=== PATIENT | female | born 1940 | race Caucasian/White ===

== ENCOUNTER 2021-10-20 18:12 | Inpatient (IN) ==
[2021-10-21] MEDS ORDERED: *HR* OxyCODONE Immed Rel 5 MG TABLET PO PRN ×4 (01:54→14:35)
[2021-10-21] MEDS ORDERED: Ondansetron 4 MG/2 ML VIAL IVP PRN ×2 (01:54→14:35)
[2021-10-21] MEDS ORDERED: Naloxone 0.4 MG/ML INJ IVP PRN ×2 (01:54→14:35)
[2021-10-21] MEDS ORDERED: Acetaminophen 325 MG TABLET PO PRN ×2 (01:54→14:35)
[2021-10-21] MEDS ORDERED: *HR* Promethazine 25 MG/ML VIAL IM PRN ×2 (01:54→14:35)
[2021-10-21] MEDS ORDERED: *HR* HYDROcodone/Acet 5/325 mg TABLET PO PRN ×2 (01:54→14:35)
[2021-10-21] MEDS ORDERED: Melatonin 3 MG TABLET PO PRN (01:54)
[2021-10-21] MEDS ORDERED: Perflutren Lipid Microsphere 1.3 ML in 0.9 % Sodium Chloride 8.7 ML IVP PRN ×2 (03:16→14:35)
[2021-10-21] MEDS ORDERED: *HR* Heparin 5,000 UNIT/ML VIAL SQ SCH (06:00)
[2021-10-21 06:59] LABS: Immature Granulocytes % 0.5 % (0-4); Platelet Count 135 K/mcL (140-400); Red Cell Distribution Width 13.2 % (11.5-14.5)
[2021-10-21 07:01] LABS: Basophils % 0.3 %; Eosinophils % 0.5 %; Hematocrit 43.7 % (35.3-44.9); Immature Platelets 9.5 % (1.1-6.1); Lymphocytes # 0.7 K/mcL (0.6-4.6); Lymphocytes % 9.1 %; Mean Corpuscular HGB Conc 34.3 g/dL (31.6-35.5); Mean Corpuscular Hemoglobin 31.6 pg (28.0-33.3); Mean Platelet Volume 11.2 fL (9.4-12.4); Monocytes # 0.5 K/mcL (0.0-1.3); Monocytes % 6.6 %; Neutrophils # 6.6 K/mcL (1.6-8.9); Red Blood Count 4.75 M/mcL (3.82-4.97)
[2021-10-21 07:08] LABS: INR 1.1; Prothrombin Time 12.2 Seconds (9.4-12.1)
[2021-10-21 07:19] LABS: Albumin 3.8 g/dL (3.5-5.7); Albumin/Globulin Ratio 1.7 (1.1-2.2); BUN/Creatinine Ratio 28 (6-26); Bilirubin,Direct 0.5 mg/dL (0.0-0.2); Bilirubin,Indirect 1.1 mg/dL (0.0-1.0); Bilirubin,Total 1.6 mg/dL (0.3-1.0); Blood Urea Nitrogen 20 mg/dL (8-23); Calcium 8.9 mg/dL (8.6-10.3); Carbon Dioxide 26 mEq/L (23-29); Chloride 101 mEq/L (98-107); Globulin 2.3 g/dL (2.4-3.5); Glucose 117 mg/dL (70-105); Magnesium 1.8 mg/dL (1.6-2.6); Osmolality,Calculated 282 (280-300); Potassium 3.8 mEq/L (3.5-5.1); Sodium 134 mEq/L (136-145); Total Protein 6.1 g/dL (6.4-8.9); eGFR For African Americans > 60 (> 60); eGFR For Non-African Americans > 60 (> 60)
[2021-10-21] MEDS ORDERED: Ketorolac 30 MG/ML VIAL IVP PRN (07:57)
[2021-10-21] MEDS ORDERED: Acetaminophen IV 1,000 MG/100 ML BAG IVPB ONE ×2 (07:57→14:35)
[2021-10-21] MEDS ORDERED: *HR* Labetalol 20 MG/4 ML SYRINGE IVP PRN ×2 (07:57→14:35)
[2021-10-21] MEDS ORDERED: *HR* HYDROmorphone 2 MG TABLET PO PRN ×2 (07:57→14:35)
[2021-10-21] MEDS ORDERED: *HR* HYDROmorphone (PF) 1 MG/ML SYRINGE IVP PRN ×2 (07:57→14:35)
[2021-10-21] MEDS ORDERED: Famotidine 20 MG/2 ML VIAL IVP ONE (07:57)
[2021-10-21] MEDS ORDERED: Ringers Solution, Lactated 1,000 ML IVC SCH ×2 (09:45→14:35)
[2021-10-21] MEDS ORDERED: *HR* FentaNYL (PF) 100 MCG/2 ML VIAL ONE (10:01)
[2021-10-21] MEDS ORDERED: *HR* Propofol 200 MG/20 ML VIAL IVP ONE (10:02)
[2021-10-21] MEDS ORDERED: Lidocaine -MPF 2% 5 ML VIAL ONE (10:04)
[2021-10-21] MEDS ORDERED: *HR* Succinylcholine 200 MG/10 ML VIAL IVP ONE (10:04)
[2021-10-21] MEDS ORDERED: Lidocaine HCL 4 ML Topical Solution (Laryng-O-Jet Kit Sterile Pak) TP ONE (10:04)
[2021-10-21] MEDS ORDERED: Tranexamic Acid 1,000 MG/10 ML VIAL ONE (10:09)
[2021-10-21] MEDS ORDERED: Ethanol\\Acetic Acid\\Na Ace\\Ben 1,000 ML IRRIG.SOLN IR ONE (10:13)
[2021-10-21] MEDS ORDERED: Vancomycin 1,000 MG VIAL ONE (11:41)
[2021-10-21] MEDS: CeFAZolin 2 GM/120 ML BAG IVPB SCH (18:04)
[2021-10-21] MEDS: Melatonin 3 MG TABLET PO PRN (21:37)
[2021-10-22] MEDS: CeFAZolin 2 GM/120 ML BAG IVPB SCH (01:44)
[2021-10-22 06:05] LABS: Basophils % 0.3 %; Eosinophils % 0.2 %; Hematocrit 36.6 % (35.3-44.9); Immature Granulocytes % 0.4 % (0-4); Lymphocytes # 1.4 K/mcL (0.6-4.6); Lymphocytes % 13.1 %; Mean Corpuscular HGB Conc 32.8 g/dL (31.6-35.5); Mean Corpuscular Hemoglobin 30.8 pg (28.0-33.3); Mean Corpuscular Volume 93.8 fL (83.0-100.0); Mean Platelet Volume 11.3 fL (9.4-12.4); Monocytes % 9.1 %; Neutrophils # 8.2 K/mcL (1.6-8.9); Platelet Count 114 K/mcL (140-400); Red Cell Distribution Width 13.3 % (11.5-14.5); Segmented Neutrophils % 76.9 %; White Blood Count 10.6 K/mcL (4.3-11.1)
[2021-10-22 06:23] LABS: BUN/Creatinine Ratio 26 (6-26); Blood Urea Nitrogen 20 mg/dL (8-23); Calcium 8.5 mg/dL (8.6-10.3); Carbon Dioxide 29 mEq/L (23-29); Chloride 103 mEq/L (98-107); Glucose 111 mg/dL (70-105); Osmolality,Calculated 285 (280-300); Potassium 3.5 mEq/L (3.5-5.1); Sodium 136 mEq/L (136-145); eGFR For African Americans > 60 (> 60); eGFR For Non-African Americans > 60 (> 60)
[2021-10-22] MEDS: Aspirin Enteric Coated 325 MG Tablet PO SCH (07:59)
[2021-10-22] MEDS ORDERED: Haloperidol Lactate 5 MG/ML VIAL IVP ONE (22:29)
[2021-10-22] MEDS: Melatonin 3 MG TABLET PO PRN (23:58)
[2021-10-23 05:10] LABS: Basophils % 0.2 %; Eosinophils % 0.7 %
[2021-10-23 05:12] LABS: Eosinophils # 0.1 K/mcL (0.0-0.6); Hematocrit 36.8 % (35.3-44.9); Hemoglobin 12.2 g/dL (11.5-15.4); Immature Granulocytes % 0.5 % (0-4); Immature Platelets 9.6 % (1.1-6.1); Lymphocytes # 1.7 K/mcL (0.6-4.6); Lymphocytes % 20.2 %; Mean Corpuscular HGB Conc 33.2 g/dL (31.6-35.5); Mean Corpuscular Hemoglobin 30.9 pg (28.0-33.3); Mean Corpuscular Volume 93.2 fL (83.0-100.0); Mean Platelet Volume 11.6 fL (9.4-12.4); Monocytes # 0.9 K/mcL (0.0-1.3); Monocytes % 10.3 %; Neutrophils # 5.7 K/mcL (1.6-8.9); Platelet Count 124 K/mcL (140-400); Red Blood Count 3.95 M/mcL (3.82-4.97); Red Cell Distribution Width 13.2 % (11.5-14.5); Segmented Neutrophils % 68.1 %; White Blood Count 8.4 K/mcL (4.3-11.1)
[2021-10-23 05:18] LABS: Platelet Estimate Slight Decrease (Normal)
[2021-10-23 05:31] LABS: Albumin/Globulin Ratio 1.5 (1.1-2.2); Bilirubin,Direct 0.2 mg/dL (0.0-0.2); Bilirubin,Indirect 0.6 mg/dL (0.0-1.0); Bilirubin,Total 0.8 mg/dL (0.3-1.0)
[2021-10-23 05:32] LABS: BUN/Creatinine Ratio 31 (6-26); Blood Urea Nitrogen 22 mg/dL (8-23); Calcium 8.3 mg/dL (8.6-10.3); Carbon Dioxide 27 mEq/L (23-29); Chloride 104 mEq/L (98-107); Glucose 97 mg/dL (70-105); Osmolality,Calculated 285 (280-300); Potassium 3.7 mEq/L (3.5-5.1); Sodium 136 mEq/L (136-145); eGFR For African Americans > 60 (> 60); eGFR For Non-African Americans > 60 (> 60)
[2021-10-23] MEDS: Aspirin Enteric Coated 325 MG Tablet PO SCH (11:22)
[2021-10-23 11:41] VITALS: BP 114/58; PULSE 64; TEMP 97.4; O2SAT 94
== END 2021-10-23 14:18 | disposition home health service (06) | DRG 522 ==
LOC: 4WAOSI → SUATTDRO 23:37
PROVIDERS: ADMIT Internal Medicine; ATTEND Internal Medicine